=== PATIENT | female | born 1955 | race Caucasian/White ===

== ENCOUNTER 2017-06-19 13:05 | Outpatient (CLI) | payer OTHER ==
[~2017-06-19 13:05] MED LIST: Colace 100MG PO; Oxycodone-Apap 5-325 MG Tab PO; Zolpidem Tartrate 10MG PO
== END 2017-06-19 13:27 | disposition home or self-care (01) ==
LOC: MRI 13:05
DX: M50.30 Other cervical disc degeneration, unspecified cervical region (principal); M51.36 Other intervertebral disc degeneration, lumbar region; Z98.1 Arthrodesis status
CPT/HCPCS: 72141; 72148